=== PATIENT | male | born 1985 | race Caucasian/White ===

== ENCOUNTER 2020-03-28 21:52 | Emergency (ER) | payer MEDICAID ==
[~2020-03-28] VITALS: Ht 167.6 cm; Wt 83.9 kg
[2020-03-28 21:52] VITALS: BP 144/89
[2020-03-28] MEDS ORDERED: FLUORESCEIN SODIUM OPHTH 1 EA STRIP ONE (22:26)
[2020-03-28] MEDS ORDERED: TETRACAINE HCL 2% OPHTHALIC 30 ML BOTTLE EACHEYE ONE (23:00)
[2020-03-28] MEDS ORDERED: FLUORESCEIN SODIUM OPHTH 1 EA STRIP OP ONE (23:00)
== END 2020-03-28 23:05 | disposition home or self-care (01) ==
LOC: ER 22:00
DX: S05.01XA Injury of conjunctiva and corneal abrasion without foreign body, right eye, initial encounter (principal); X58.XXXA Exposure to other specified factors, initial encounter; Y93.89 Activity, other specified; Y92.89 Other specified places as the place of occurrence of the external cause; Y99.8 Other external cause status